=== PATIENT | male | born 1970 | race Hispanic/Latino ===

== ENCOUNTER 2017-08-04 19:30 | Emergency (ER) | payer OTHER ==
[2017-08-04] MEDS ORDERED: MAG HYDROX/AL HYDROX/SIMETH ES 30 ML SUSP UDCUP ONE (19:49)
[2017-08-04] MEDS ORDERED: LIDOCAINE HCL 2% VISCOUS 15 ML UDCUP ONE (19:49)
[2017-08-04] MEDS ORDERED: ACETAMINOPHEN-CODEINE ELIXIR 5 ML UDCUP ONE (19:50)
[2017-08-04 19:52] LABS: MEAN CORPUSCULAR HEMOGLOBIN 30.7 pg (27.0-33.0); MEAN CORPUSCULAR HGB CONC 34.4 g/dL (32.0-36.0); MEAN CORPUSCULAR VOLUME 89.2 fL (79-99); RED BLOOD CELL COUNT(AUTO) 4.82 MIL/uL (4.50-6.20); RED CELL DISTRIBUTION WIDTH 12.7 % (11.0-15.5)
[2017-08-04 19:53] LABS: BASOPHILS % (AUTO) 0.7 % (0.0-5.0); EOSINOPHILS % (AUTO) 0.7 % (0.0-8.0); LYMPHOCYTES % (AUTO) 27.4 % (21.0-51.0); MONOCYTES % (AUTO) 5.4 % (3.0-13.0); NEUTROPHILS % (AUTO) 65.8 % (40.0-77.0); PLATELET COUNT (AUTO) 183 K/uL (130-400)
[2017-08-04 20:04] LABS: CREATININE 1.1 mg/dL (0.5-1.5); POTASSIUM 3.6 mmol/L (3.5-5.1)
[2017-08-04 20:09] LABS: ALBUMIN 3.8 g/dL (3.5-5.0); BILIRUBIN,TOTAL 0.3 mg/dL (0.2-1.0); TOTAL PROTEIN, SERUM 7.7 g/dL (6.0-8.3)
[2017-08-04 22:12] LABS: AMPHET/METH SCREEN,URINE NEGATIVE (NEGATIVE); BARBITURATE SCREEN, URINE NEGATIVE (NEGATIVE); BENZODIAZEPINES SCREEN,URINE NEGATIVE (NEGATIVE); CANNABINOID SCREEN,URINE NEGATIVE (NEGATIVE); COCAINE SCREEN,URINE NEGATIVE (NEGATIVE); OPIATE SCREEN,URINE POSITIVE (NEGATIVE); PHENCYCLIDINE SCREEN,URINE NEGATIVE (NEGATIVE)
== END 2017-08-04 21:54 | disposition home or self-care (01) ==
LOC: EDH 19:30
DX: R07.89 Other chest pain (principal); K21.9 Gastro-esophageal reflux disease without esophagitis; K29.70 Gastritis, unspecified, without bleeding
CPT/HCPCS: 36415; 80053; 80305; 84484; 85025; 93005

== ENCOUNTER 2018-05-02 21:14 | Emergency (ER) | payer OTHER ==
[2018-05-02] MEDS ORDERED: FAMOTIDINE/PF 20 MG/2 ML VIAL IV ONE (22:18)
[2018-05-02] MEDS ORDERED: HYOSCYAMINE SULFATE 0.125 MG TAB.SUBL SL ONE (22:18)
[2018-05-02 22:19] LABS: BASOPHILS % (AUTO) 4.3 % (0.0-5.0); EOSINOPHILS % (AUTO) 0.7 % (0.0-8.0); HEMATOCRIT 42.4 % (42-54); LYMPHOCYTES % (AUTO) 24.4 % (21.0-51.0); MEAN CORPUSCULAR HEMOGLOBIN 31.4 pg (27.0-33.0); MEAN CORPUSCULAR HGB CONC 34.6 g/dL (32.0-36.0); MEAN CORPUSCULAR VOLUME 90.7 fL (79-99); MONOCYTES % (AUTO) 6.2 % (3.0-13.0); NEUTROPHILS % (AUTO) 64.4 % (40.0-77.0); PLATELET COUNT (AUTO) 167 K/uL (130-400); RED BLOOD CELL COUNT(AUTO) 4.68 MIL/uL (4.50-6.20); RED CELL DISTRIBUTION WIDTH 13.1 % (11.0-15.5); WHITE BLOOD COUNT (AUTO) 7.5 K/uL (4.8-10.8)
[2018-05-02 22:36] LABS: POTASSIUM 3.4 mmol/L (3.5-5.1)
[2018-05-02 22:40] LABS: ALBUMIN 3.7 g/dL (3.5-5.0); BILIRUBIN,TOTAL 0.2 mg/dL (0.2-1.0); TOTAL PROTEIN, SERUM 7.7 g/dL (6.0-8.3)
[2018-05-02 22:59] LABS: APPEARANCE,URINE Clear (CLEAR); BILIRUBIN,URINE Negative (NEGATIVE); COLOR,URINE Yellow (YELLOW); GLUCOSE, URINE (UA) Negative (NEGATIVE); KETONES,URINE Negative (NEGATIVE); LEUKOCYTE ESTERASE ,URINE Negative (NEGATIVE); NITRATE,URINE Negative (NEGATIVE); OCCULT BLOOD,URINE Negative (NEGATIVE); PH,URINE 5.5 (5.0-8.0); PROTEIN,URINE Negative (NEGATIVE)
== END 2018-05-02 23:56 | disposition home or self-care (01) ==
LOC: EDH 21:14
DX: R10.12 Left upper quadrant pain (principal); R10.13 Epigastric pain; K21.9 Gastro-esophageal reflux disease without esophagitis
CPT/HCPCS: 36415; 71045; 74176; 80053; 81003; 82150; 82550; 83690; 84484; 85025; 93005; 96374; 99285; J3490

== ENCOUNTER 2018-09-25 20:17 | Emergency (ER) | payer OTHER ==
[2018-09-25 20:37] LABS: LYMPHOCYTES % (AUTO) 38.7 % (21.0-51.0); MEAN CORPUSCULAR HEMOGLOBIN 31.4 pg (27.0-33.0); MEAN CORPUSCULAR HGB CONC 34.6 g/dL (32.0-36.0); MEAN CORPUSCULAR VOLUME 90.7 fL (79-99); MONOCYTES % (AUTO) 6.9 % (3.0-13.0); NEUTROPHILS % (AUTO) 52.4 % (40.0-77.0); NUCLEATED RED BLOOD CELLS 0.2 % (0.0-0.19); PLATELET COUNT (AUTO) 170 K/uL (130-400); RED BLOOD CELL COUNT(AUTO) 4.74 MIL/uL (4.50-6.20); RED CELL DISTRIBUTION WIDTH 12.9 % (11.0-15.5); WHITE BLOOD COUNT (AUTO) 7.2 K/uL (4.8-10.8)
[2018-09-25 21:04] LABS: POTASSIUM 3.7 mmol/L (3.5-5.1)
[2018-09-25 21:09] LABS: ALBUMIN 3.9 g/dL (3.5-5.0); BILIRUBIN,TOTAL 0.2 mg/dL (0.2-1.0); TOTAL PROTEIN, SERUM 7.8 g/dL (6.0-8.3)
[2018-09-25] MEDS ORDERED: ASPIRIN 325 MG TABLET ONE (21:16)
[2018-09-25] MEDS ORDERED: MAG HYDROX/AL HYDROX/SIMETH ES 30 ML SUSP UDCUP ONE (21:16)
[2018-09-25 21:32] LABS: APPEARANCE,URINE Clear (CLEAR); BILIRUBIN,URINE Negative (NEGATIVE); COLOR,URINE Yellow (YELLOW); GLUCOSE, URINE (UA) Negative (NEGATIVE); KETONES,URINE Negative (NEGATIVE); LEUKOCYTE ESTERASE ,URINE Negative (NEGATIVE); NITRATE,URINE Negative (NEGATIVE); OCCULT BLOOD,URINE Negative (NEGATIVE); PROTEIN,URINE Negative (NEGATIVE); UROBILINOGEN,URINE 0.2 mg/dL (0.2-1.0)
== END 2018-09-25 23:55 | disposition home or self-care (01) ==
LOC: EDH 20:17
DX: R07.89 Other chest pain (principal); R00.2 Palpitations; R05 Cough; K21.9 Gastro-esophageal reflux disease without esophagitis; Z79.899 Other long term (current) drug therapy
CPT/HCPCS: 36415; 71045; 80053; 81003; 82550; 83690; 84484; 85025; 93005

== ENCOUNTER 2019-02-14 21:29 | Emergency (ER) | payer OTHER ==
[2019-02-14] MEDS ORDERED: SODIUM CHLORIDE 0.9% 1000ML 2,000 ML IV ONE (21:57)
[2019-02-14] MEDS ORDERED: ONDANSETRON HCL 4 MG/2 ML VIAL ONE (21:57)
[2019-02-14 22:14] LABS: BASOPHILS % (AUTO) 0.3 % (0.0-5.0); EOSINOPHILS % (AUTO) 0.3 % (0.0-8.0); LYMPHOCYTES % (AUTO) 8.8 % (21.0-51.0); MEAN CORPUSCULAR HEMOGLOBIN 30.5 pg (27.0-33.0); MEAN CORPUSCULAR HGB CONC 33.8 g/dL (32.0-36.0); MEAN CORPUSCULAR VOLUME 90.5 fL (79-99); MONOCYTES % (AUTO) 5.7 % (3.0-13.0); NEUTROPHILS % (AUTO) 84.9 % (40.0-77.0); PLATELET COUNT (AUTO) 191 K/uL (130-400); RED BLOOD CELL COUNT(AUTO) 5.19 MIL/uL (4.50-6.20); WHITE BLOOD COUNT (AUTO) 12.6 K/uL (4.8-10.8)
[2019-02-14 22:25] LABS: POTASSIUM 3.7 mmol/L (3.5-5.1)
[2019-02-14 22:30] LABS: ALBUMIN 4.3 g/dL (3.5-5.0); BILIRUBIN,DIRECT 0.1 mg/dL (0.0-0.3); BILIRUBIN,TOTAL 0.5 mg/dL (0.2-1.0); TOTAL PROTEIN, SERUM 8.6 g/dL (6.0-8.3)
== END 2019-02-15 00:32 | disposition home or self-care (01) ==
LOC: EDH 21:29
DX: K52.9 Noninfective gastroenteritis and colitis, unspecified (principal); K21.9 Gastro-esophageal reflux disease without esophagitis
CPT/HCPCS: 36415; 80048; 80076; 82550; 83690; 85025; 96361; 96374; 99285; J2405; J7030

== ENCOUNTER 2019-05-12 12:42 | Emergency (ER) | payer BC ==
[2019-05-12] MEDS ORDERED: ASPIRIN 325 MG TABLET ONE (12:52)
[2019-05-12 13:10] LABS: BASOPHILS % (AUTO) 0.4 % (0.0-5.0); EOSINOPHILS % (AUTO) 0.6 % (0.0-8.0); HEMATOCRIT 44.2 % (42-54); LYMPHOCYTES % (AUTO) 30.8 % (21.0-51.0); MEAN CORPUSCULAR HEMOGLOBIN 31.1 pg (27.0-33.0); MEAN CORPUSCULAR VOLUME 91.4 fL (79-99); MONOCYTES % (AUTO) 6.6 % (3.0-13.0); NEUTROPHILS % (AUTO) 61.6 % (40.0-77.0); PLATELET COUNT (AUTO) 177 K/uL (130-400); RED BLOOD CELL COUNT(AUTO) 4.83 MIL/uL (4.50-6.20); RED CELL DISTRIBUTION WIDTH 13.2 % (11.0-15.5); WHITE BLOOD COUNT (AUTO) 7.5 K/uL (4.8-10.8)
[2019-05-12 13:20] LABS: INR 0.97 (0.85-1.15); PARTIAL THROMBOPLASTIN TIME 26.8 SEC (26.3-35.5); PROTHROMBIN TIME 10.2 SEC (9.6-11.6)
[2019-05-12 13:26] LABS: CREATININE 0.9 mg/dL (0.5-1.5)
[2019-05-12] MEDS ORDERED: LIDOCAINE HCL 2% VISCOUS 15 ML UDCUP ONE (13:28)
[2019-05-12] MEDS ORDERED: MAG HYDROX/AL HYDROX/SIMETH ES 30 ML SUSP UDCUP ONE (13:28)
[2019-05-12 13:31] LABS: BILIRUBIN,TOTAL 0.4 mg/dL (0.2-1.0); TOTAL PROTEIN, SERUM 8.2 g/dL (6.0-8.3)
== END 2019-05-12 15:29 | disposition home or self-care (01) ==
LOC: EDH 12:42
DX: R07.89 Other chest pain (principal); K21.9 Gastro-esophageal reflux disease without esophagitis
CPT/HCPCS: 36415; 71045; 80053; 82550; 83880; 84484; 85025; 85610; 85730; 93005

== ENCOUNTER 2019-09-04 02:40 | Emergency (ER) | payer BC ==
[2019-09-04] MEDS ORDERED: DIPHENHYDRAMINE HCL 25 MG CAPSULE ONE (03:39)
== END 2019-09-04 04:14 | disposition home or self-care (01) ==
LOC: EDH 02:40
DX: F41.9 Anxiety disorder, unspecified (principal); K21.9 Gastro-esophageal reflux disease without esophagitis
CPT/HCPCS: 93005; 99283; Q0163

== ENCOUNTER 2020-10-15 12:10 | Emergency (ER) | payer BC ==
[2020-10-15] MEDS ORDERED: KETOROLAC TROMETHAMINE 60 MG/2 ML VIAL ONE (12:24)
[2020-10-15] MEDS ORDERED: CYCLOBENZAPRINE HCL 10 MG TABLET ONE (12:24)
== END 2020-10-15 13:15 | disposition home or self-care (01) ==
LOC: EDH 12:10
DX: M54.5 Low back pain (principal); K21.9 Gastro-esophageal reflux disease without esophagitis
CPT/HCPCS: 72100; 96372; 99284; J1885

== ENCOUNTER 2021-01-16 15:42 | Observation (INO) | payer BC ==
[~2021-01-16] VITALS: Ht 165.1 cm; Wt 96.1 kg
[2021-01-16 15:45] VITALS: BP 146/88
[2021-01-16 17:01] LABS: APPEARANCE,URINE Clear (CLEAR); BILIRUBIN,URINE Negative (NEGATIVE); COLOR,URINE Yellow (YELLOW); GLUCOSE, URINE (UA) Negative (NEGATIVE); KETONES,URINE Trace mg/dL (NEGATIVE); LEUKOCYTE ESTERASE ,URINE Negative (NEGATIVE); NITRATE,URINE Negative (NEGATIVE); OCCULT BLOOD,URINE Negative (NEGATIVE); PROTEIN,URINE Negative (NEGATIVE)
[2021-01-16 17:05] LABS: BASOPHILS % (AUTO) 0.5 % (0.0-5.0); EOSINOPHILS % (AUTO) 0.5 % (0.0-8.0); HEMATOCRIT 44.8 % (42-54); LYMPHOCYTES % (AUTO) 29.1 % (21.0-51.0); MEAN CORPUSCULAR HEMOGLOBIN 30.6 pg (27.0-33.0); MEAN CORPUSCULAR HGB CONC 33.3 g/dL (32.0-36.0); MONOCYTES % (AUTO) 6.4 % (3.0-13.0); NEUTROPHILS % (AUTO) 63.4 % (40.0-77.0); PLATELET COUNT (AUTO) 192 K/uL (130-400); RED BLOOD CELL COUNT(AUTO) 4.87 MIL/uL (4.50-6.20); RED CELL DISTRIBUTION WIDTH 12.7 % (11.0-15.5); WHITE BLOOD COUNT (AUTO) 7.5 K/uL (4.8-10.8)
[2021-01-16 17:09] LABS: AMPHET/METH SCREEN,URINE NEGATIVE (NEGATIVE); BARBITURATE SCREEN, URINE NEGATIVE (NEGATIVE); BENZODIAZEPINES SCREEN,URINE NEGATIVE (NEGATIVE); CANNABINOID SCREEN,URINE NEGATIVE (NEGATIVE); COCAINE SCREEN,URINE POSITIVE (NEGATIVE); OPIATE SCREEN,URINE NEGATIVE (NEGATIVE); PHENCYCLIDINE SCREEN,URINE NEGATIVE (NEGATIVE)
[2021-01-16 17:12] LABS: CARBON DIOXIDE 32 mmol/L (21-32); CHLORIDE 103 mmol/L (101-111); CREATININE 1.2 mg/dL (0.5-1.5); GLOMERULAR FILTR. RATE CALC 68 mL/min (>60); GLUCOSE,RANDOM 103 mg/dL (70-105); POTASSIUM 3.8 mmol/L (3.5-5.1); SODIUM SERUM 142 mmol/L (136-145); UREA NITROGEN, BLOOD 20 mg/dL (7-18)
[2021-01-16 17:23] LABS: ALANINE AMINOTRANSFERASE 72 U/L (12-78); ALBUMIN 4.1 g/dL (3.5-5.0); ASPARTATE AMINOTRANSFERASE 37 U/L (10-37); BILIRUBIN,TOTAL 0.3 mg/dL (0.2-1.0); CREATINE KINASE, TOTAL 90 U/L (21-232); MYOGLOBIN 38 ng/mL (10-92); TOTAL PROTEIN, SERUM 8.2 g/dL (6.0-8.3); TROPONIN I < 0.04 ng/mL (0.00-0.06)
[2021-01-16] MEDS ORDERED: FAMOTIDINE 20MG VIAL IV ONE (17:30)
[2021-01-16] MEDS ORDERED: MAG/ALUM/SIMETH 30 ML UDCUP PO ONE (17:30)
[2021-01-16] MEDS ORDERED: LIDOCAINE HCL 2% VISCOUS 15 ML UDCUP PO ONE (17:30)
[2021-01-16] MEDS ORDERED: NITROGLYCERIN 1GM OINT 1 INCH/1GM TD ONE (19:00)
[2021-01-16] MEDS ORDERED: ASPIRIN 325MG TAB PO ONE (19:00)
[2021-01-16] MEDS ORDERED: ONDANSETRON 4MG INJ IV PRN (19:30)
[2021-01-16] MEDS: 0.9%NACL 1000ML 1,000 ML IV SCH (19:30)
[2021-01-16] MEDS ORDERED: ACETAMINOPHEN 325 MG TAB PO PRN (19:30)
[2021-01-16] MEDS ORDERED: NITROGLYCERIN 0.4 MG SL TAB SL PRN (19:30)
[2021-01-16] MEDS ORDERED: MORPHINE 2 MG SYG IVP PRN (19:30)
[2021-01-16] MEDS: FAMOTIDINE 20MG VIAL IV SCH (22:12)
[2021-01-16 23:52] VITALS: BP 139/87
[2021-01-17] VITALS (8 sets, daily range): BP systolic 112–144; BP diastolic 60–99
[2021-01-17] MEDS: ACETAMINOPHEN 325 MG TAB PO PRN ×3 (01:35→20:03)
[2021-01-17 06:07] LABS: HEMATOCRIT 39.8 % (42-54); MEAN CORPUSCULAR HEMOGLOBIN 30.4 pg (27.0-33.0); MEAN CORPUSCULAR HGB CONC 33.2 g/dL (32.0-36.0); MEAN CORPUSCULAR VOLUME 91.7 fL (79-99); RED BLOOD CELL COUNT(AUTO) 4.34 MIL/uL (4.50-6.20); RED CELL DISTRIBUTION WIDTH 12.6 % (11.0-15.5); WHITE BLOOD COUNT (AUTO) 8.8 K/uL (4.8-10.8)
[2021-01-17 06:16] LABS: HEMOGLOBIN A1C 5.8 % (4.0-6.0)
[2021-01-17 06:28] LABS: ALBUMIN 3.4 g/dL (3.5-5.0); BILIRUBIN,TOTAL 0.5 mg/dL (0.2-1.0); POTASSIUM 3.6 mmol/L (3.5-5.1); THYROID STIMULATING HORMONE 3.4 uIU/mL (0.36-3.74); TOTAL PROTEIN, SERUM 6.8 g/dL (6.0-8.3)
[2021-01-17] MEDS: FAMOTIDINE 20MG VIAL IV SCH ×2 (12:18→19:58)
[2021-01-17] MEDS: ASPIRIN 81MG CHEW TAB PO SCH (12:18)
[2021-01-17] MEDS: 0.9%NACL 1000ML 1,000 ML IV SCH (12:20)
[2021-01-18 04:16] VITALS: BP 130/88
[2021-01-18 08:00] VITALS: BP 140/85
[2021-01-18] MEDS: FAMOTIDINE 20MG VIAL IV SCH (09:06)
[2021-01-18] MEDS: ASPIRIN 81MG CHEW TAB PO SCH (09:06)
== END 2021-01-18 18:00 | disposition home or self-care (01) ==
LOC: EDH 15:42 → EDHIP 19:06 → 3CH 01-17 08:59
PROVIDERS: ADMIT Internal Medicine; ATTEND Internal Medicine
DX: I24.9 Acute ischemic heart disease, unspecified (principal); R10.13 Epigastric pain; F14.10 Cocaine abuse, uncomplicated; K21.9 Gastro-esophageal reflux disease without esophagitis; E66.9 Obesity, unspecified; K76.0 Fatty (change of) liver, not elsewhere classified; K46.9 Unspecified abdominal hernia without obstruction or gangrene; Z68.33 Body mass index [BMI] 33.0-33.9, adult; Z79.899 Other long term (current) drug therapy; Z98.890 Other specified postprocedural states; Z79.82 Long term (current) use of aspirin
CPT/HCPCS: 36415 ×2; 71045; 74176; 80053 ×2; 80061; 80305; 81003; 82550; 83036; 83690; 83874; 84443; 84484 ×3; 85025; 85027; 93005; 96361 ×3; 96374; 96376 ×3; 99285; G0378 ×47; J3490 ×5; J7030

== ENCOUNTER 2021-09-18 22:57 | Emergency (ER) | payer BC, OTHER ==
[~2021-09-18] VITALS: Ht 165.1 cm; Wt 96.2 kg
[2021-09-18 23:36] LABS: APPEARANCE,URINE Clear (CLEAR); BILIRUBIN,URINE Negative (NEGATIVE); COLOR,URINE Yellow (YELLOW); GLUCOSE, URINE (UA) Negative (NEGATIVE); KETONES,URINE Trace mg/dL (NEGATIVE); LEUKOCYTE ESTERASE ,URINE Negative (NEGATIVE); NITRATE,URINE Negative (NEGATIVE); OCCULT BLOOD,URINE Negative (NEGATIVE); PH,URINE 6.5 (5.0-8.0); PROTEIN,URINE Negative (NEGATIVE)
[2021-09-18 23:37] LABS: BASOPHILS % (AUTO) 0.4 % (0.0-5.0); EOSINOPHILS % (AUTO) 0.6 % (0.0-8.0); HEMATOCRIT 40.8 % (42-54); LYMPHOCYTES % (AUTO) 31.2 % (21.0-51.0); MEAN CORPUSCULAR HEMOGLOBIN 29.8 pg (27.0-33.0); MEAN CORPUSCULAR HGB CONC 33.6 g/dL (32.0-36.0); MEAN CORPUSCULAR VOLUME 88.7 fL (79-99); MONOCYTES % (AUTO) 7.3 % (3.0-13.0); NEUTROPHILS % (AUTO) 60.2 % (40.0-77.0); PLATELET COUNT (AUTO) 170 K/uL (130-400); RED CELL DISTRIBUTION WIDTH 12.2 % (11.0-15.5)
[2021-09-18 23:47] LABS: POTASSIUM 3.9 mmol/L (3.5-5.1)
[2021-09-18 23:51] LABS: ALBUMIN 3.8 g/dL (3.5-5.0); BILIRUBIN,TOTAL 0.2 mg/dL (0.2-1.0); TOTAL PROTEIN, SERUM 7.5 g/dL (6.0-8.3)
[2021-09-19] MEDS ORDERED: PANTOPRAZOLE 40 MG TAB DR PO SCH (01:30)
[2021-09-19] MEDS ORDERED: KETOROLAC 60 MG VIAL (30MG/ML) IM ONE (01:30)
[2021-09-19] MEDS ORDERED: FAMOTIDINE 20MG TAB PO ONE (01:30)
[2021-09-19] MEDS ORDERED: LIDOP TP (02:49)
[2021-09-19] MEDS ORDERED: CYCL-309 PO (02:49)
[2021-09-19] MEDS ORDERED: MELO7.5T12 PO (02:49)
[2021-09-19 02:56] VITALS: BP 134/89
== END 2021-09-19 03:00 | disposition home or self-care (01) ==
LOC: EDH 22:57
DX: R07.89 Other chest pain (principal); Z79.1 Long term (current) use of non-steroidal anti-inflammatories (NSAID)
CPT/HCPCS: 36415; 71045; 80053; 81003; 83690; 84484; 85025; 93005; 96372; 99285; J1885

== ENCOUNTER 2022-01-25 00:52 | Emergency (ER) | payer OTHER ==
[~2022-01-25] VITALS: Ht 165.1 cm; Wt 93.0 kg
[~2022-01-25 00:52] MED LIST: CYCL-309 PO; LIDOP TP; MELO7.5T12 PO
[2022-01-25] MEDS ORDERED: LIDOCAINE HCL 2% VISCOUS 15 ML UDCUP ONE (01:28)
[2022-01-25] MEDS ORDERED: MAG/ALUM/SIMETH 30 ML UDCUP ONE (01:28)
[2022-01-25] MEDS ORDERED: DICYCLOMINE HCL 10 MG/5 ML ML PO ONE (01:28)
[2022-01-25] MEDS ORDERED: BENZ-39 PO (05:41)
[2022-01-25] MEDS ORDERED: PANT40TA55 PO (05:41)
[2022-01-25 05:50] VITALS: BP 151/81
[2022-01-25] MEDS ORDERED: PANTOPRAZOLE 40 MG TAB DR ONE (05:51)
[2022-01-25] MEDS ORDERED: PANTOPRAZOLE 40 MG TAB DR PO SCH (06:00)
[2022-01-25] MEDS ORDERED: BENZONATATE 100 MG CAPSULE PO SCH (06:00)
[2022-01-25] MEDS ORDERED: BENZONATATE 100 MG CAPSULE PO ONE (06:01)
== END 2022-01-25 06:05 | disposition home or self-care (01) ==
LOC: EDH 00:52
DX: U07.1 COVID-19 (principal); J06.9 Acute upper respiratory infection, unspecified; K21.9 Gastro-esophageal reflux disease without esophagitis; Z79.1 Long term (current) use of non-steroidal anti-inflammatories (NSAID)
CPT/HCPCS: 71045

== ENCOUNTER 2022-05-28 13:10 | Emergency (ER) | payer OTHER ==
[~2022-05-28] VITALS: Ht 165.1 cm; Wt 92.5 kg
[~2022-05-28 13:10] MED LIST changes: +BENZ-39 PO; +PANT40TA55 PO
[2022-05-28 13:31] VITALS: BP 109/77
[2022-05-28 14:05] LABS: BASOPHILS % (AUTO) 0.2 % (0.0-5.0); EOSINOPHILS % (AUTO) 0.6 % (0.0-8.0); HEMATOCRIT 43.4 % (42-54); MEAN CORPUSCULAR HEMOGLOBIN 30.6 pg (27.0-33.0); MEAN CORPUSCULAR HGB CONC 33.9 g/dL (32.0-36.0); MEAN CORPUSCULAR VOLUME 90.2 fL (79-99); MONOCYTES % (AUTO) 12.7 % (3.0-13.0); NEUTROPHILS % (AUTO) 61.3 % (40.0-77.0); PLATELET COUNT (AUTO) 154 K/uL (130-400); RED BLOOD CELL COUNT(AUTO) 4.81 MIL/uL (4.50-6.20); RED CELL DISTRIBUTION WIDTH 12.2 % (11.0-15.5); WHITE BLOOD COUNT (AUTO) 4.8 K/uL (4.8-10.8)
[2022-05-28 14:16] LABS: APPEARANCE,URINE CLEAR (CLEAR); BILIRUBIN,URINE NEGATIVE (NEGATIVE); COLOR,URINE COLORLESS (YELLOW); GLUCOSE, URINE (UA) NEGATIVE (NEGATIVE); KETONES,URINE NEGATIVE (NEGATIVE); LEUKOCYTE ESTERASE ,URINE NEGATIVE Leu/uL (NEGATIVE); NITRATE,URINE NEGATIVE (NEGATIVE); OCCULT BLOOD,URINE NEGATIVE (NEGATIVE); PROTEIN,URINE NEGATIVE (NEGATIVE); UROBILINOGEN,URINE 0.2 mg/dL (0.2-1.0)
[2022-05-28 14:21] LABS: ALBUMIN 4.1 g/dL (3.5-5.0); POTASSIUM 4.2 mmol/L (3.5-5.1); TOTAL PROTEIN, SERUM 8.2 g/dL (6.0-8.3)
== END 2022-05-28 16:01 | disposition home or self-care (01) ==
LOC: EDH 13:10
DX: J10.1 Influenza due to other identified influenza virus with other respiratory manifestations (principal); Z20.822 Contact with and (suspected) exposure to COVID-19; K21.9 Gastro-esophageal reflux disease without esophagitis
CPT/HCPCS: 99283; 87635; 80053; 85025; 87804 ×2; 81003; 36415; C9803

== ENCOUNTER 2022-10-30 20:32 | Emergency (ER) | payer OTHER ==
[~2022-10-30] VITALS: Ht 165.1 cm; Wt 91.6 kg
[2022-10-30 20:40] VITALS: BP 121/88
[2022-10-30] MEDS ORDERED: ACETAMINOPHEN 500 MG TABLET PO ONE (22:00)
[2022-10-30] MEDS ORDERED: TETANUS/DIPHTHERIA TOXOID [ADULT] 0.5 ML VIAL IM ONE (22:00)
== END 2022-10-30 22:30 | disposition home or self-care (01) ==
LOC: EDH 20:32
DX: S00.81XA Abrasion of other part of head, initial encounter (principal); K21.9 Gastro-esophageal reflux disease without esophagitis; Z79.899 Other long term (current) drug therapy; H92.01 Otalgia, right ear; X58.XXXA Exposure to other specified factors, initial encounter; Y93.89 Activity, other specified; Y92.89 Other specified places as the place of occurrence of the external cause; Y99.8 Other external cause status
CPT/HCPCS: 90471; 90714

== ENCOUNTER 2022-12-12 03:44 | Emergency (ER) | payer BC, OTHER ==
[~2022-12-12] VITALS: Ht 165.1 cm; Wt 90.3 kg
[2022-12-12] MEDS ORDERED: METOCLOPRAMIDE 10 MG TABLET PO ONE (04:30)
[2022-12-12] MEDS ORDERED: MECLIZINE HCL 25 MG TABLET PO ONE (04:30)
[2022-12-12] MEDS ORDERED: HYDROXYZINE 25 MG TABLET PO ONE (04:30)
[2022-12-12] MEDS ORDERED: MECL-160 PO (04:46)
[2022-12-12] MEDS ORDERED: METO-296 PO (04:46)
[2022-12-12 05:11] VITALS: BP 124/70
== END 2022-12-12 05:12 | disposition home or self-care (01) ==
LOC: EDH 03:44
DX: F41.9 Anxiety disorder, unspecified (principal); G44.209 Tension-type headache, unspecified, not intractable; R42 Dizziness and giddiness; Z79.899 Other long term (current) drug therapy; Z87.19 Personal history of other diseases of the digestive system

== ENCOUNTER 2023-01-28 00:38 | Emergency (ER) | payer BC ==
[~2023-01-28] VITALS: Ht 165.1 cm; Wt 90.7 kg
[~2023-01-28 00:38] MED LIST changes: +MECL-160 PO; +METO-296 PO
[2023-01-28 00:42] VITALS: BP 153/101; PULSE 74; RESP 20
== END 2023-01-28 04:46 | disposition left against medical advice (07) ==
LOC: EDH 00:38
DX: R07.89 Other chest pain (principal); R50.9 Fever, unspecified; Z53.21 Procedure and treatment not carried out due to patient leaving prior to being seen by health care provider
CPT/HCPCS: 93005

== ENCOUNTER 2023-08-06 19:38 | Emergency (ER) | payer BC ==
[~2023-08-06 19:38] MED LIST changes: -MECL-160 PO; +MECL-302 PO
== END 2023-08-06 21:55 | disposition left against medical advice (07) ==
LOC: EDH 19:38
DX: K13.29 Other disturbances of oral epithelium, including tongue (principal); Z53.21 Procedure and treatment not carried out due to patient leaving prior to being seen by health care provider

== ENCOUNTER 2023-12-06 18:13 | Emergency (ER) | payer OTHER, BC ==
[~2023-12-06] VITALS: Ht 165.1 cm; Wt 90.7 kg
[~2023-12-06 18:13] MED LIST changes: +DICL20GE TP
[2023-12-06 18:20] VITALS: BP 133/110; PULSE 65; RESP 18
[2023-12-06] MEDS: ACETAMINOPHEN 325 MG TAB PO ONE (19:03)
== END 2023-12-06 19:09 | disposition home or self-care (01) ==
LOC: EDH 18:13
DX: Z04.3 Encounter for examination and observation following other accident (principal); K21.9 Gastro-esophageal reflux disease without esophagitis
CPT/HCPCS: 99282

== ENCOUNTER 2024-11-04 22:27 | Emergency (ER) | payer BC ==
[~2024-11-04] VITALS: Ht 165.1 cm; Wt 92.5 kg
[2024-11-04 22:57] LABS: BASOPHILS # (AUTO) 0.04 K/uL (0.00-0.20); BASOPHILS % (AUTO) 0.5 % (0.0-5.0); EOSINOPHILS # (AUTO) 0.06 K/uL (0.00-0.70); EOSINOPHILS % (AUTO) 0.8 % (0.0-8.0); HEMATOCRIT 41.1 % (42-54); IMMATURE GRANULOCYTE ABSOLUTE 0.02 K/uL (0-1); LYMPHOCYTES # (AUTO) 2.3 K/uL (1.0-4.8); LYMPHOCYTES % (AUTO) 29.7 % (21.0-51.0); MEAN CORPUSCULAR HEMOGLOBIN 30.3 pg (27.0-33.0); MEAN CORPUSCULAR HGB CONC 33.6 g/dL (32.0-36.0); MEAN CORPUSCULAR VOLUME 90.3 fL (79-99); MONOCYTES # (AUTO) 0.5 K/uL (0.1-1.0); NEUTROPHILS # (AUTO) 4.8 K/uL (1.8-7.7); NEUTROPHILS % (AUTO) 61.7 % (40.0-77.0); PLATELET COUNT (AUTO) 159 K/uL (130-400); RED BLOOD CELL COUNT(AUTO) 4.55 MIL/uL (4.50-6.20); RED CELL DISTRIBUTION WIDTH 12.7 % (11.0-15.5); WHITE BLOOD COUNT (AUTO) 7.7 K/uL (4.8-10.8)
[2024-11-04 23:05] LABS: CREATININE 0.9 mg/dL (0.5-1.3); POTASSIUM 3.8 mmol/L (3.5-5.1)
[2024-11-04 23:39] LABS: B-TYPE NATRIURETIC PEPTIDE 12 pg/mL (0-100)
[2024-11-05 01:01] VITALS: BP 136/78; PULSE 64; RESP 16; TEMP 98.1; O2SAT 98
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
--- NOTE | 2024-11-05 07:47 | EKG ---
[facility] Test Date: 2024-11-04 Test Time: 22:29:05 Pat Name: GONZALO BERNAL Department: ED Room: Gender: M [employer] Director: [birth year] : 1970 Requested By: TERRELL KOTHARI Order Number: [id number] Reading MD: Mike Rosas Measurements Intervals [place] Rate: 57 P: 32 OR: 148 QRS: -8 QRSD: 96 T: 29 QT: 399 QTc: 389 Interpretive Statements Sinus rhythm Compared to ECG 01/28/2023 01:06:56 ST (T wave) deviation no longer present Electronically Signed On 11-06-2024 12:32:21 CDT by Mike Rosas Please click the below link to view image of tracing.
--- NOTE | 2024-11-05 09:23 | HMCIMG ---
Exam Type: CHEST 1VW Clinical Information: Chest pain Comparison: None Findings: The lungs are clear of infiltrates. The heart is normal in size. The bony and soft tissue structures of the chest are unremarkable. Impression: Clear lungs.
== END 2024-11-05 01:51 | disposition home or self-care (01) ==
LOC: EDH 22:27
DX: R07.89 Other chest pain (principal); Z79.1 Long term (current) use of non-steroidal anti-inflammatories (NSAID); Z79.899 Other long term (current) drug therapy
CPT/HCPCS: 36415; 71045; 80048; 83880; 84484; 85025; 93005; 99284